=== PATIENT | female | born 1980 | race Two or more races ===

== ENCOUNTER 2020-08-31 09:30 | Inpatient (IN) | payer OTHER ==
[~2020-08-31] VITALS: Ht 149.9 cm; Wt 61.2 kg
[2020-08-31] MEDS ORDERED: SYNTHROID75 MCG PO (11:37)
[2020-09-07] MEDS ORDERED: DIAZEPAM5 MG PO (11:40)
[2020-09-07] MEDS ORDERED: COLACE100 MG PO (11:40)
[2020-09-07] MEDS ORDERED: PERCOCET 5-3251 EACH PO (11:40)
== END 2020-09-08 13:07 | disposition home or self-care (01) | DRG 472 ==
LOC: O/R 09-07 08:17 → SURH 09-07 09:30 → SURG 09-07 15:05
PROVIDERS: ADMIT Orthopaedic Surgery Orthopaedic Surgery of the Spine; ATTEND Orthopaedic Surgery Orthopaedic Surgery of the Spine
PROC: 0RT30ZZ Resection of Cervical Vertebral Disc, Open Approach (ICD-10-PCS; 2020-09-07)
PROC: 07DS3ZZ Extraction of Vertebral Bone Marrow, Percutaneous Approach (ICD-10-PCS; 2020-09-07)
PROC: 4A12X4Z Monitoring of Cardiac Electrical Activity, External Approach (ICD-10-PCS; 2020-09-07)
PROC: 0RG20A0 Fusion of 2 or more Cervical Vertebral Joints with Interbody Fusion Device, Anterior Approach, Anterior Column, Open Approach (ICD-10-PCS; principal; 2020-09-07 13:30)
DX: M50.021 Cervical disc disorder at C4-C5 level with myelopathy (principal); M47.12 Other spondylosis with myelopathy, cervical region; M50.022 Cervical disc disorder at C5-C6 level with myelopathy; M50.223 Other cervical disc displacement at C6-C7 level; M48.02 Spinal stenosis, cervical region; Z20.828 Contact with and (suspected) exposure to other viral communicable diseases